=== PATIENT | female | born 1985 | race American Indian/Alaskan Native ===

== ENCOUNTER 2016-07-20 18:45 | Emergency (ER) | payer MEDICAID ==
[2016-07-21] MEDS ORDERED: XYLOCAINE 1% 20 mL INFILTRATI ONE (00:18)
[2016-07-21 01:52] VITALS: BP 160/115
[2016-07-21] MEDS ORDERED: POLYSPORIN TP ONE (01:53)
--- NOTE | 2016-07-21 04:02 | Emergency Department Report ---
Abscess Boil HPI - HPI Chief Complaint: Skin/Abscess/Foreign Body Stated Complaint: LT BREAST SWOLLEN /PAIN /REDNESS Duration: >1 Week Location: Other (left breast) Severity: Mild History: Yes Pain, Yes Insect Bite, No Fever, No Purulent Drainage, No Numbness , No Foreign Body, No Previous History HPI: 31 year old female presents to ED with 2cm abscess on left breast. patient is stable, neurologically intact and in no acute distress. Home Medications: Home Medications Medication Instructions Recorded Confirmed Last Taken Ondansetron [Zofran] 4 mg PO Q6HR PRN 07/15/13 07/15/13 07/13/13 4 Previous Rx's Medication Instructions Recorded Last Taken Type Ferrous Sulfate [Feosol 325 MG tab] 325 mg PO TID #90 tablet 07/15/13 Unknown Rx Ibuprofen [Motrin 800 MG tab] 800 mg PO Q8H PRN #90 tablet 07/15/13 Unknown Rx oxyCODONE /ACETAMINOPHEN [Percocet 1 tab PO Q6HR PRN #30 tablet 07/15/13 Unknown Rx 5/325 mg] Ketorolac [Toradol] 10 mg PO Q6H PRN #20 tablet 07/21/16 Unknown Rx Sulfamethoxazole/Trimethoprim 1 each PO BID #20 tablet 07/21/16 Unknown Rx [Bactrim DS TAB] Allergies/Adverse Reactions: Allergies Allergy/AdvReac Type Severity Reaction Status Date / Time No Known Allergies Allergy Verified 07/12/13 10:32 ED Review of Systems ROS: Stated complaint: LT BREAST SWOLLEN /PAIN /REDNESS Other details as noted in HPI Constitutional: denies: chills, fever Eyes: denies: eye pain, eye discharge, vision change ENT: denies: ear pain, throat pain Respiratory: denies: cough, shortness of breath, wheezing Cardiovascular: denies: chest pain, palpitations Endocrine: no symptoms reported Gastrointestinal: denies: abdominal pain, nausea, diarrhea Genitourinary: denies: urgency, dysuria, discharge Musculoskeletal: denies: back pain, joint swelling, arthralgia Skin: other (left breast abscess). denies: rash, lesions Neurological: denies: headache, weakness, paresthesias Psychiatric: denies: anxiety, depression Hematological/Lymphatic: denies: easy bleeding, easy bruising ED Past Medical Hx - Past Medical History Previous Medical History?: Yes Hx Hypertension: Yes Hx Congestive Heart Failure: No Hx Diabetes: No Hx Deep Vein Thrombosis: No Hx Renal Disease: No Hx Sickle Cell Disease: No Hx Seizures: No Hx Asthma: No Hx COPD: No Hx HIV: No - Surgical History Past Surgical History?: Yes Additional Surgical History: d&C c-sec - Social History Smoking Status: Current Every Day Smoker Substance Use Type: None - Medications Home Medications: Home Medications Medication Instructions Recorded Confirmed Last Taken Type Ferrous Sulfate [Feosol 325 MG tab] 325 mg PO TID #90 tablet 07/15/13 Unknown Rx Ibuprofen [Motrin 800 MG tab] 800 mg PO Q8H PRN #90 tablet 07/15/13 Unknown Rx Ondansetron [Zofran] 4 mg PO Q6HR PRN 07/15/13 07/15/13 07/13/13 History 4 oxyCODONE /ACETAMINOPHEN [Percocet 1 tab PO Q6HR PRN #30 tablet 07/15/13 Unknown Rx 5/325 mg] Ketorolac [Toradol] 10 mg PO Q6H PRN #20 tablet 07/21/16 Unknown Rx Sulfamethoxazole/Trimethoprim 1 each PO BID #20 tablet 07/21/16 Unknown Rx [Bactrim DS TAB] ED Abscess Boil Physical Exam - Exam General: Vital signs noted. No distress. Alert and acting appropriately. Cardiovascular: normal rate and rhythm Respiratory Normal breath sounds bilaterally Size: 2 cm Exam: Yes Tenderness, Yes Fluctuance, Yes Surrounding Cellulites/Erythema, Yes Normal Neurologic Exam, Yes Normal Circulation, No Lymphangitis, No Crepitation , No Heart Murmur I & D Note - I & D Note I & D Note: area prepped with betadine. area numbed with 5mL 1% lidocaine scalpel used to puncture abscess and minimal amount of purulent drainage obtained from site of abscess. patient tolerated procedure well. gauze and bacitracin applied to area by RN. female RN present during entire examination. ED Course Vital Signs 07/20/16 07/21/16 20:16 01:52 Temperature 99.3 F 98.1 F Pulse Rate 82 75 Respiratory 18 16 Rate Blood Pressure 152/104 Blood Pressure 160/115 [Right] O2 Sat by Pulse 100 100 Oximetry Critical care attestation.: If time is entered above; I have spent that time in minutes in the direct care of this critically ill patient, excluding procedure time. ED Medical Decision Making - Lab Data Lab Results 07/21/16 Range/Units 01:11 Urine HCG, Qual Negative (Negative) - Medical Decision Making 31 year old female presents to ED with left breast abscess. I&D performed and patient tolerated well. patient will be placed on PO antibiotics and is to return to ED in 2-3 days for re check. patient is stable, neurologically intact and in no acute distress. ED Disposition Clinical Impression: Abscess Disposition: DISCHARGED TO HOME OR SELFCARE Is pt being admited?: No Does the pt Need Aspirin: No Condition: Stable Instructions: Breast Abscess Drainage (ED), Incision and Drainage (ED) Additional Instructions: please return to ED or PCP for wound recheck within 2 days. Prescriptions: Ketorolac [Toradol] 10 mg PO Q6H PRN #20 tablet PRN Reason: Pain Sulfamethoxazole/Trimethoprim [Bactrim DS TAB] 1 each PO BID #20 tablet Referrals: PRIMARY CARE, [Primary Care Provider] - 2-3 Days Forms: Work/School Release Form(ED)
== END 2016-07-21 02:39 | disposition home or self-care (01) ==
LOC: ED 18:45
DX: N61.1 Abscess of the breast and nipple (principal); I10 Essential (primary) hypertension; F17.200 Nicotine dependence, unspecified, uncomplicated
CPT/HCPCS: 81025

== ENCOUNTER 2017-02-26 15:24 | Emergency (ER) | payer MEDICAID ==
[2017-02-26 15:48] VITALS: BP 149/92
[2017-02-26] MEDS ORDERED: ROCEPHIN IM ONE (16:42)
[2017-02-26] MEDS ORDERED: XYLOCAINE 1% MPF 5 mL INFILTRATI ONE (16:42)
--- NOTE | 2017-02-26 16:42 | Emergency Department Report ---
Abscess Boil HPI - HPI Chief Complaint: Skin/Abscess/Foreign Body Stated Complaint: CYST ON BREAST Time Seen by Provider: 02/26/17 16:34 Duration: >1 Week Location: Other (L BREAST) Severity: Mild History: Yes Pain, Yes Purulent Drainage, Yes Previous History (SURG PLANNED), No Fever, No Numbness, No Foreign Body, No Insect Bite Home Medications: Home Medications Medication Instructions Recorded Confirmed Last Taken Ondansetron [Zofran] 4 mg PO Q6HR PRN 07/15/13 07/15/13 07/13/13 4 Previous Rx's Medication Instructions Recorded Last Taken Type Ferrous Sulfate [Feosol 325 MG tab] 325 mg PO TID #90 tablet 07/15/13 Unknown Rx Ibuprofen [Motrin 800 MG tab] 800 mg PO Q8H PRN #90 tablet 07/15/13 Unknown Rx oxyCODONE /ACETAMINOPHEN [Percocet 1 tab PO Q6HR PRN #30 tablet 07/15/13 Unknown Rx 5/325 mg] Ketorolac [Toradol] 10 mg PO Q6H PRN #20 tablet 07/21/16 Unknown Rx Sulfamethoxazole/Trimethoprim 1 each PO BID #20 tablet 07/21/16 Unknown Rx [Bactrim DS TAB] Allergies/Adverse Reactions: Allergies Allergy/AdvReac Type Severity Reaction Status Date / Time No Known Allergies Allergy Verified 07/12/13 10:32 ED Review of Systems ROS: Stated complaint: CYST ON BREAST Other details as noted in HPI Comment: All other systems reviewed and negative Skin: other (ABSCESS L BREAST) ED Past Medical Hx - Past Medical History Hx Hypertension: Yes Hx Congestive Heart Failure: No Hx Diabetes: No Hx Deep Vein Thrombosis: No Hx Renal Disease: No Hx Sickle Cell Disease: No Hx Seizures: No Hx Asthma: No Hx COPD: No Hx HIV: No - Surgical History Additional Surgical History: d&C c-sec - Social History Smoking Status: Current Every Day Smoker Substance Use Type: None - Medications Home Medications: Home Medications Medication Instructions Recorded Confirmed Last Taken Type Ferrous Sulfate [Feosol 325 MG tab] 325 mg PO TID #90 tablet 07/15/13 Unknown Rx Ibuprofen [Motrin 800 MG tab] 800 mg PO Q8H PRN #90 tablet 07/15/13 Unknown Rx Ondansetron [Zofran] 4 mg PO Q6HR PRN 07/15/13 07/15/13 07/13/13 History 4 oxyCODONE /ACETAMINOPHEN [Percocet 1 tab PO Q6HR PRN #30 tablet 07/15/13 Unknown Rx 5/325 mg] Ketorolac [Toradol] 10 mg PO Q6H PRN #20 tablet 07/21/16 Unknown Rx Sulfamethoxazole/Trimethoprim 1 each PO BID #20 tablet 07/21/16 Unknown Rx [Bactrim DS TAB] ED Abscess Boil Physical Exam - Exam General: Vital signs noted. No distress. Alert and acting appropriately. Size: 2 cm Exam: Yes Tenderness, Yes Surrounding Cellulites/Erythema, Yes Normal Neurologic Exam, Yes Normal Circulation, No Fluctuance, No Lymphangitis, No Crepitation, No Heart Murmur Exam: VSS NAD. NO FEVER. HER 90 ON EXAM. PT JUST WANTED REASSURANCE. ON BACTRIM AND TORADOL I & D Note - I & D Note I & D Note: ALREADY DRAINING ON OWN ED Course Vital Signs 02/26/17 15:44 Temperature 98 F Pulse Rate 101 H Respiratory 20 Rate Blood Pressure 149/92 O2 Sat by Pulse 97 Oximetry Critical care attestation.: If time is entered above; I have spent that time in minutes in the direct care of this critically ill patient, excluding procedure time. ED Medical Decision Making - Medical Decision Making SEE NOTE - Differential Diagnosis RECHECK OF WOUND ED Disposition Clinical Impression: Abscess, Cellulitis Disposition: DC-01 TO HOME OR SELFCARE Is pt being admited?: No Does the pt Need Aspirin: No Condition: Stable Instructions: Abscess (ED), Cellulitis (ED) Additional Instructions: EPSOM SALT SOAKS THREE TIMES PER DAY FOR 20 MIN EACH TIME CONTINUE BACTRIM SEE PCP THIS WEEK Referrals: MEKA NOLEN MD [Staff Physician] - 3-5 Days Time of Disposition: 16:42
== END 2017-02-26 17:37 | disposition home or self-care (01) ==
LOC: ED 15:24
DX: N61.1 Abscess of the breast and nipple (principal); N60.02 Solitary cyst of left breast; I10 Essential (primary) hypertension; F17.200 Nicotine dependence, unspecified, uncomplicated; Z48.00 Encounter for change or removal of nonsurgical wound dressing
CPT/HCPCS: 96372; 99282; J0696

== ENCOUNTER 2017-05-19 09:04 | Emergency (ER) | payer MEDICAID ==
[2017-05-19 09:48] VITALS: BP 163/107
== END 2017-05-19 16:42 ==
LOC: ED 09:04
DX: M54.2 Cervicalgia (principal); Z53.21 Procedure and treatment not carried out due to patient leaving prior to being seen by health care provider

== ENCOUNTER 2018-03-18 08:05 | Emergency (ER) | payer MEDICAID, OTHER ==
[2018-03-18 08:53] LABS: Basophils % (Auto) 0.5 % (0.0-1.8); Eosinophils # (Auto) 0.1 K/mm3 (0.0-0.4); Eosinophils % (Auto) 0.9 % (0.0-4.3); Hemoglobin 14.2 gm/dl (10.1-14.3); Lymphocytes # (Auto) 2.1 K/mm3 (1.2-5.4); Lymphocytes % (Auto) 26.6 % (13.4-35.0); Mean Corpuscular HGB Conc 34 % (30-34); Mean Corpuscular Volume 84 fl (79-97); Monocytes # (Auto) 0.5 K/mm3 (0.0-0.8); Monocytes % (Auto) 5.8 % (0.0-7.3); Platelet Count 281 K/mm3 (140-440); Red Blood Count 5.01 M/mm3 (3.65-5.03); Red Cell Distribution Width 15.8 % (13.2-15.2)
--- NOTE | 2018-03-18 09:32 | Emergency Department Report ---
ED Female HPI - General Chief complaint: Vaginal Bleeding Stated complaint: COMPLICATION W/ CONTROL Time Seen by Provider: 03/18/18 09:25 Source: patient Mode of arrival: Ambulatory Limitations: No Limitations - History of Present Illness Initial comments: Ms. Ferrer is a very pleasant healthy 31-year-old female with irregular vaginal bleeding. She is concerned that her IUD has been misplaced. She had a similar occurrence last fall . IUD was misplaced completely out of her cervix/vagina/uterus. With IUD in place she normally does not have any vaginal bleeding. Since she had vaginal bleeding earlier this week, she is concerned that IUD is no longer present. She is [facility] at [facility]. She denies any abdominal pain. She denies any vaginal discharge. She denies lightheadedness or any generalized symptoms. Past medical history includes asthma hypertension. Past surgical history includes D&C and section. MD Complaint: vaginal bleeding -: Gradual, days(s) (several days ago) Severity: mild Consistency: intermittent, now resolved Improves with: none Worsens with: none Are you Now?: No Associated Symptoms: denies other symptoms - Related Data Home Medications Medication Instructions Recorded Confirmed Last Taken Ondansetron [Zofran] 4 mg PO Q6HR PRN 07/15/13 07/15/13 07/13/13 4 Previous Rx's Medication Instructions Recorded Last Taken Type Ferrous Sulfate [Feosol 325 MG tab] 325 mg PO TID #90 tablet 07/15/13 Unknown Rx Ibuprofen [Motrin 800 MG tab] 800 mg PO Q8H PRN #90 tablet 07/15/13 Unknown Rx oxyCODONE /ACETAMINOPHEN [Percocet 1 tab PO Q6HR PRN #30 tablet 07/15/13 Unknown Rx 5/325 mg] Ketorolac [Toradol] 10 mg PO Q6H PRN #20 tablet 07/21/16 Unknown Rx Sulfamethoxazole/Trimethoprim 1 each PO BID #20 tablet 07/21/16 Unknown Rx [Bactrim DS TAB] Allergies Allergy/AdvReac Type Severity Reaction Status Date / Time No Known Allergies Allergy Verified 03/18/18 08:09 ED Review of Systems ROS: Stated complaint: COMPLICATION W/ CONTROL Other details as noted in HPI Comment: All other systems reviewed and negative Constitutional: denies: fever, malaise Respiratory: denies: cough Cardiovascular: denies: chest pain ED Past Medical Hx - Past Medical History Hx Hypertension: Yes Hx Congestive Heart Failure: No Hx Diabetes: No Hx Deep Vein Thrombosis: No Hx Renal Disease: No Hx Sickle Cell Disease: No Hx Seizures: No Hx Asthma: Yes Hx COPD: No Hx HIV: No - Surgical History Additional Surgical History: d&C c-sec - Social History Smoking Status: Never Smoker Substance Use Type: None - Medications Home Medications: Home Medications Medication Instructions Recorded Confirmed Last Taken Type Ferrous Sulfate [Feosol 325 MG tab] 325 mg PO TID #90 tablet 07/15/13 Unknown Rx Ibuprofen [Motrin 800 MG tab] 800 mg PO Q8H PRN #90 tablet 07/15/13 Unknown Rx Ondansetron [Zofran] 4 mg PO Q6HR PRN 07/15/13 07/15/13 07/13/13 History 4 oxyCODONE /ACETAMINOPHEN [Percocet 1 tab PO Q6HR PRN #30 tablet 07/15/13 Unknown Rx 5/325 mg] Ketorolac [Toradol] 10 mg PO Q6H PRN #20 tablet 07/21/16 Unknown Rx Sulfamethoxazole/Trimethoprim 1 each PO BID #20 tablet 07/21/16 Unknown Rx [Bactrim DS TAB] ED Physical Exam - General Limitations: No Limitations General appearance: alert, in no apparent distress - Head Head exam: Present: atraumatic, normocephalic - Eye Eye exam: Present: normal appearance - ENT ENT exam: Present: mucous membranes moist - Neck Neck exam: Present: normal inspection. Absent: tenderness, meningismus - Respiratory Respiratory exam: Present: normal lung sounds bilaterally. Absent: respiratory distress, wheezes, rales, rhonchi - Cardiovascular Cardiovascular Exam: Present: regular rate, normal rhythm, normal heart sounds. Absent: systolic murmur, diastolic murmur, rubs, gallop - GI/Abdominal GI/Abdominal exam: Present: soft, normal bowel sounds. Absent: distended, tenderness, guarding, rebound - Extremities Exam Extremities exam: Present: normal inspection - Back Exam Back exam: Present: normal inspection - Neurological Exam Neurological exam: Present: alert, oriented X3, normal gait - Psychiatric Psychiatric exam: Present: normal affect, normal mood - Skin Skin exam: Present: warm, dry, intact, normal color. Absent: rash ED Course Vital Signs 03/18/18 08:09 Temperature 99.1 F Pulse Rate 95 H Respiratory 20 Rate Blood Pressure 159/108 O2 Sat by Pulse 99 Oximetry ED Medical Decision Making - Lab Data Result diagrams: 03/18/18 08:43 Laboratory Results - last 24 hr 03/18/18 03/18/18 03/18/18 08:43 08:43 08:43 WBC 8.0 RBC 5.01 Hgb 14.2 Hct 42.0 MCV 84 MCH 28 MCHC 34 RDW 15.8 H Plt Count 281 Lymph % (Auto) 26.6 [place] % (Auto) 5.8 Eos % (Auto) 0.9 Baso % (Auto) 0.5 Lymph # 2.1 [place] # 0.5 Eos # 0.1 Baso # 0.0 Seg Neutrophils % 66.2 Seg Neutrophils # 5.3 HCG, Qual Negative Blood Type O POSITIVE Antibody Screen Negative - Radiology Data Radiology results: report reviewed Well-positioned IUD - Medical Decision Making Ms. Ferrer presents with irregular vaginal bleeding with well-positioned IUD according to ultrasound. No evidence of . Given reassurance. CBC within normal limits. test negative. Critical care attestation.: If time is entered above; I have spent that time in minutes in the direct care of this critically ill patient, excluding procedure time. ED Disposition Clinical Impression: IUD (intrauterine device) in place, Vagina bleeding Disposition: -01 TO HOME OR SELFCARE Is pt being admited?: No Does the pt Need Aspirin: No Condition: Stable Instructions: Menstruation (ED) Referrals: PRIMARY CARE, [Primary Care Provider] - 3-5 Days
--- NOTE | 2018-03-18 11:59 | Ultrasound Report ---
Limited abdominal ultrasound: Vaginal hemorrhage; IUD identification. Transabdominal imaging is performed. The uterus is visualized measuring approximately 3.9 x 3.9 x 5.3 cm. No evidence of uterine mass. There are linear high density at in the endometrium consistent with a relatively well-positioned IUD. The left ovary is present containing a 16mm cyst with some dependent debris. The right ovary is less well imaged. No evidence of free fluid. Impression: Well-positioned IUD.
[2018-03-18 12:33] VITALS: BP 157/111
== END 2018-03-18 12:44 | disposition home or self-care (01) ==
LOC: ED 08:05
DX: N93.9 Abnormal uterine and vaginal bleeding, unspecified (principal); Z30.433 Encounter for removal and reinsertion of intrauterine contraceptive device; I10 Essential (primary) hypertension; J45.909 Unspecified asthma, uncomplicated
CPT/HCPCS: 36415; 76857; 84703; 85025; 86850; 86900; 86901

== ENCOUNTER 2018-08-31 09:49 | Emergency (ER) | payer MEDICAID ==
[2018-08-31 09:56] VITALS: BP 150/103
--- NOTE | 2018-08-31 11:24 | Emergency Department Report ---
ED Headache HPI - General Chief Complaint: Headache Stated Complaint: NECK PAIN/HEADACHE Time Seen by Provider: 08/31/18 11:06 - History of Present Illness Initial Comments: 33-year-old female history of hypertension presents to ED with complaint of headache since yesterday. She states pain is diffusely located, with associated neck tightness. Patient believes her blood pressure is elevated, states whenever she experiences this neck pain that is usually because her blood pressure is high. Patient denies nausea, vomiting, visual changes. Reports some lightheadedness. Patient states she has been off her BP meds for several months. PCP: Dr Sutton Timing/Duration: other (since yesterday) Quality: moderate Associated Symptoms: denies: fever/chills, nausea/vomiting, stiff neck, vision changes, weakness Allergies/Adverse Reactions: Allergies No Known Allergies Allergy (Verified 03/18/18 08:09) Home Medications: Ambulatory Orders Ferrous Sulfate [Feosol 325 MG tab] 325 mg PO TID #90 tablet 07/15/13 Ibuprofen [Motrin 800 MG tab] 800 mg PO Q8H PRN #90 tablet 07/15/13 Ondansetron [Zofran] 4 mg PO Q6HR PRN 07/15/13 oxyCODONE /ACETAMINOPHEN [Percocet 5/325 mg] 1 tab PO Q6HR PRN #30 tablet 07/15/13 Ketorolac [Toradol] 10 mg PO Q6H PRN #20 tablet 07/21/16 Sulfamethoxazole/Trimethoprim [Bactrim DS TAB] 1 each PO BID #20 tablet 07/21/16 Losartan [Cozaar] 25 mg PO QDAY #30 tablet 08/31/18 ED Review of Systems ROS: Stated complaint: NECK PAIN/HEADACHE Other details as noted in HPI Comment: All other systems reviewed and negative Constitutional: denies: chills, fever Eyes: denies: vision change Gastrointestinal: denies: nausea, vomiting Neurological: headache. denies: weakness, numbness, paresthesias ED Past Medical Hx - Past Medical History Previous Medical History?: Yes Hx Hypertension: Yes Hx Congestive Heart Failure: No Hx Diabetes: No Hx Deep Vein Thrombosis: No Hx Renal Disease: No Hx Sickle Cell Disease: No Hx Seizures: No Hx Asthma: Yes Hx COPD: No Hx HIV: No - Surgical History Past Surgical History?: Yes Additional Surgical History: d&C c-sec - Social History Smoking Status: Current Every Day Smoker - Medications Home Medications: Home Medications Medication Instructions Recorded Confirmed Last Taken Type Ferrous Sulfate [Feosol 325 MG tab] 325 mg PO TID #90 tablet 07/15/13 Unknown Rx Ibuprofen [Motrin 800 MG tab] 800 mg PO Q8H PRN #90 tablet 07/15/13 Unknown Rx Ondansetron [Zofran] 4 mg PO Q6HR PRN 07/15/13 07/15/13 07/13/13 History 4 oxyCODONE /ACETAMINOPHEN [Percocet 1 tab PO Q6HR PRN #30 tablet 07/15/13 Unknown Rx 5/325 mg] Ketorolac [Toradol] 10 mg PO Q6H PRN #20 tablet 07/21/16 Unknown Rx Sulfamethoxazole/Trimethoprim 1 each PO BID #20 tablet 07/21/16 Unknown Rx [Bactrim DS TAB] Losartan [Cozaar] 25 mg PO QDAY #30 tablet 08/31/18 Unknown Rx ED Physical Exam - General Limitations: No Limitations General appearance: alert, in no apparent distress, other (appears nontoxic) - Head Head exam: Present: atraumatic, normocephalic - Eye Eye exam: Present: normal appearance, PERRL, EOMI - ENT ENT exam: Present: mucous membranes moist - Neck Neck exam: Present: normal inspection, full ROM. Absent: meningismus - Respiratory Respiratory exam: Present: normal lung sounds bilaterally. Absent: respiratory distress - Cardiovascular Cardiovascular Exam: Present: regular rate, normal rhythm - GI/Abdominal GI/Abdominal exam: Absent: distended - Extremities Exam Extremities exam: Present: normal inspection - Neurological Exam Neurological exam: Present: alert, oriented X3, CN II-XII intact. Absent: motor sensory deficit - Psychiatric Psychiatric exam: Present: normal affect, normal mood - Skin Skin exam: Present: warm, dry, intact, normal color ED Course Vital Signs 08/31/18 09:53 Temperature 98.5 F Pulse Rate 93 H Respiratory 16 Rate Blood Pressure 150/103 O2 Sat by Pulse 99 Oximetry ED Medical Decision Making - Medical Decision Making - presents for BP med refill - [place], neck pain reportedly experienced by pt in the past when BP elevated - appears nontoxic, neuro exam normal, no meningismus present - refill given - PCP f/u advised - return precautions given - Differential Diagnosis hypertension Critical care attestation.: If time is entered above; I have spent that time in minutes in the direct care of this critically ill patient, excluding procedure time. ED Disposition Clinical Impression: Hypertension Disposition: DC-01 TO HOME OR SELFCARE Is pt being admited?: No Condition: Stable Instructions: Hypertension (ED) Prescriptions: Losartan [Cozaar] 25 mg PO QDAY #30 tablet Referrals: ANDREI SUTTON MD [Staff Physician] - 3-5 Days Time of Disposition: 11:24
== END 2018-08-31 11:40 | disposition home or self-care (01) ==
LOC: ED 09:49
DX: I10 Essential (primary) hypertension (principal); J45.909 Unspecified asthma, uncomplicated; F17.200 Nicotine dependence, unspecified, uncomplicated; Z79.899 Other long term (current) drug therapy
CPT/HCPCS: 99282

== ENCOUNTER 2018-09-13 11:13 | Emergency (ER) | payer MEDICAID ==
--- NOTE | 2018-09-13 11:21 | Emergency Department Report ---
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
--- NOTE | 2018-09-13 11:59 | Emergency Department Report ---
ED General Adult HPI - General Chief complaint: Neck Pain/Injury Stated complaint: SHOULDER/NECK PAIN Time Seen by Provider: 09/13/18 11:17 Source: patient Mode of arrival: Ambulatory Limitations: No Limitations - Related Data Home Medications Medication Instructions Recorded Confirmed Last Taken Ondansetron [Zofran] 4 mg PO Q6HR PRN 07/15/13 07/15/13 07/13/13 4 Previous Rx's Medication Instructions Recorded Last Taken Type Ferrous Sulfate [Feosol 325 MG tab] 325 mg PO TID #90 tablet 07/15/13 Unknown Rx Ibuprofen [Motrin 800 MG tab] 800 mg PO Q8H PRN #90 tablet 07/15/13 Unknown Rx oxyCODONE /ACETAMINOPHEN [Percocet 1 tab PO Q6HR PRN #30 tablet 07/15/13 Unknown Rx 5/325 mg] Ketorolac [Toradol] 10 mg PO Q6H PRN #20 tablet 07/21/16 Unknown Rx Sulfamethoxazole/Trimethoprim 1 each PO BID #20 tablet 07/21/16 Unknown Rx [Bactrim DS TAB] Losartan [Cozaar] 25 mg PO QDAY #30 tablet 08/31/18 Unknown Rx Ibuprofen [Motrin 800 MG tab] 800 mg PO Q8HR PRN #30 tablet 09/13/18 Unknown Rx Menthol/Camphor [[place] 1 applic TP BID PRN #1 cream..g. 09/13/18 Unknown Rx Neck-Shoulder Cream] Allergies Allergy/AdvReac Type Severity Reaction Status Date / Time No Known Allergies Allergy Verified 03/18/18 08:09 ED Review of Systems ROS: Stated complaint: SHOULDER/NECK PAIN Other details as noted in HPI ED Past Medical Hx - Past Medical History Previous Medical History?: Yes Hx Hypertension: Yes Hx Congestive Heart Failure: No Hx Diabetes: No Hx Deep Vein Thrombosis: No Hx Renal Disease: No Hx Sickle Cell Disease: No Hx Seizures: No Hx Asthma: Yes Hx COPD: No Hx HIV: No - Surgical History Past Surgical History?: Yes Additional Surgical History: d&C c-sec - Social History Smoking Status: Never Smoker Substance Use Type: Alcohol - Medications Home Medications: Home Medications Medication Instructions Recorded Confirmed Last Taken Type Ferrous Sulfate [Feosol 325 MG tab] 325 mg PO TID #90 tablet 07/15/13 Unknown Rx Ibuprofen [Motrin 800 MG tab] 800 mg PO Q8H PRN #90 tablet 07/15/13 Unknown Rx Ondansetron [Zofran] 4 mg PO Q6HR PRN 07/15/13 07/15/13 07/13/13 History 4 oxyCODONE /ACETAMINOPHEN [Percocet 1 tab PO Q6HR PRN #30 tablet 07/15/13 Unknown Rx 5/325 mg] Ketorolac [Toradol] 10 mg PO Q6H PRN #20 tablet 07/21/16 Unknown Rx Sulfamethoxazole/Trimethoprim 1 each PO BID #20 tablet 07/21/16 Unknown Rx [Bactrim DS TAB] Losartan [Cozaar] 25 mg PO QDAY #30 tablet 08/31/18 Unknown Rx Ibuprofen [Motrin 800 MG tab] 800 mg PO Q8HR PRN #30 tablet 09/13/18 Unknown Rx Menthol/Camphor [[place] 1 applic TP BID PRN #1 cream..g. 09/13/18 Unknown Rx Neck-Shoulder Cream] ED Physical Exam - General Limitations: No Limitations ED Course Vital Signs 09/13/18 11:15 Temperature 98.2 F Pulse Rate 106 H Respiratory 17 Rate Blood Pressure 161/111 O2 Sat by Pulse 100 Oximetry Critical care attestation.: If time is entered above; I have spent that time in minutes in the direct care of this critically ill patient, excluding procedure time. ED Disposition Clinical Impression: Acute strain of neck muscle Disposition: DC-01 TO HOME OR SELFCARE Is pt being admited?: No Does the pt Need Aspirin: No Condition: Stable Instructions: Muscle Strain (ED) Additional Instructions: Ibuprofen as needed for pain management increase her water intake and take with food. [place] muscle strain medication. Apply twice a day as needed. Follow-up with Dr. Saldivar for your elevated blood pressure. Prescriptions: Ibuprofen [Motrin 800 MG tab] 800 mg PO Q8HR PRN #30 tablet PRN Reason: Pain , Severe (7-10) Menthol/Camphor [[place] Neck-Shoulder Cream] 1 applic TP BID PRN #1 cream..g. PRN Reason: Pain , Severe (7-10) Referrals: AJ STEELE MD [Primary Care Provider] - 3-5 Days
[2018-09-13 12:07] LABS: Bilirubin,Urine NEG (Negative); Blood,Urine NEG (Negative); Color,Urine Yellow (Yellow); Mucus,Urine FEW /HPF; Protein,Urine <15 mg/dL mg/dL (Negative); Urobilinogen,Urine < 2.0 mg/dL (<2.0)
[2018-09-13 12:09] LABS: HCG Qualitative,Urine Negative (Negative)
[2018-09-13 12:43] VITALS: BP 160/96
== END 2018-09-13 12:42 | disposition home or self-care (01) ==
LOC: ED 11:13
DX: S16.1XXA Strain of muscle, fascia and tendon at neck level, initial encounter (principal); M25.512 Pain in left shoulder; M25.511 Pain in right shoulder; Z79.899 Other long term (current) drug therapy; I10 Essential (primary) hypertension; J45.909 Unspecified asthma, uncomplicated; N89.8 Other specified noninflammatory disorders of vagina; X58.XXXA Exposure to other specified factors, initial encounter; Y93.F2 Activity, caregiving, lifting; Y92.59 Other trade areas as the place of occurrence of the external cause; Y99.8 Other external cause status
CPT/HCPCS: 81001; 81025

== ENCOUNTER 2021-04-17 20:26 | Emergency (ER) | payer MEDICAID ==
[2021-04-18 02:01] LABS: Basophils # (Auto) 0.1 K/mm3 (0.0-0.1); Basophils % (Auto) 0.6 % (0.0-1.8); Eosinophils # (Auto) 0.1 K/mm3 (0.0-0.4); Hematocrit 40.1 % (30.3-42.9); Hemoglobin 13.2 gm/dl (10.1-14.3); Lymphocytes # (Auto) 2.1 K/mm3 (1.2-5.4); Lymphocytes % (Auto) 21.5 % (13.4-35.0); Mean Corpuscular HGB Conc 33 % (30-34); Mean Corpuscular Volume 83 fl (79-97); Monocytes # (Auto) 0.7 K/mm3 (0.0-0.8); Monocytes % (Auto) 7.5 % (0.0-7.3); Platelet Count 282 K/mm3 (140-440); Red Blood Count 4.82 M/mm3 (3.65-5.03)
[2021-04-18 02:19] LABS: Alanine Aminotransferase 14 units/L (7-56); BUN/Creatinine Ratio 20; Blood Urea Nitrogen 14 mg/dL (7-17); Calcium 8.5 mg/dL (8.4-10.2); Hemolysis Index 4
[2021-04-18 05:51] LABS: HCG Qualitative,Urine Negative (Negative)
[2021-04-18 05:52] LABS: Bilirubin,Urine NEG (Negative); Blood,Urine NEG (Negative); Color,Urine Yellow (Yellow); Mucus,Urine FEW /HPF; Protein,Urine <15 mg/dL mg/dL (Negative); Urobilinogen,Urine < 2.0 mg/dL (<2.0)
--- NOTE | 2021-04-18 06:52 | XRay Report ---
XR abdomen 1V ap INDICATION / CLINICAL INFORMATION: abd pain. COMPARISON: None available. Supine AP abdomen FINDINGS: TUBES / LINES: None. BOWEL GAS PATTERN: No significant abnormality. FREE AIR / EXTRALUMINAL GAS: None seen. ADDITIONAL FINDINGS: IUD present within the pelvis. IMPRESSION: 1. No significant abnormality. Signer Name: Tez Jo II, MD Signed: 04/18/2021 6:48 AM Workstation Name: [id number]
[2021-04-18] MEDS ORDERED: SULFAMETHOXAZOLE/TRIMETHOPRIM 800/160MG DS TAB PO ONE (06:57)
[2021-04-18] MEDS ORDERED: CLINDAMYCIN 300 MG CAP PO ONE (06:57)
[2021-04-18] MEDS ORDERED: ONDANSETRON 4 MG ODT TAB PO ONE (06:58)
[2021-04-18] MEDS ORDERED: HYDROcodone/ACETAMINOPHEN 5-325 MG TAB PO ONE (06:58)
--- NOTE | 2021-04-18 07:19 | Emergency Department Report ---
ED Abdominal Pain HPI - General Chief Complaint: Abdominal Pain Stated Complaint: AB/BUTT PAIN Time Seen by Provider: 04/18/21 06:36 Source: patient Mode of arrival: Ambulatory Limitations: No Limitations - History of Present Illness Initial Comments: 35-year-old female with a past medical history of obesity, hypertension, asthma, and previous presents the hospital planing of abdominal pain for last 3 days. Pain is generalized, intermittent, cramping. Yesterday pain was rated 10/10 intensity. Pain is currently 8/10 intensity. Patient denies nausea, vomiting, fever, dysuria, diarrhea, or constipation. Patient also complains of a abscess to her abdominal wall which is tender to palpation. Abscess began draining spontaneously. Patient did not take her BP medication yesterday or this morning. She states she currently takes hydrochlorothiazide but cannot recall the dose. Denies headache or chest pain - Related Data Home Medications Medication Instructions Recorded Confirmed Last Taken Ondansetron [Zofran] 4 mg PO Q6HR PRN 07/15/13 07/15/13 07/13/13 4 Previous Rx's Medication Instructions Recorded Last Taken Type Ferrous Sulfate [Feosol 325 MG tab] 325 mg PO TID #90 tablet 07/15/13 Unknown Rx Ibuprofen [Motrin 800 MG tab] 800 mg PO Q8H PRN #90 tablet 07/15/13 Unknown Rx oxyCODONE /ACETAMINOPHEN [Percocet 1 tab PO Q6HR PRN #30 tablet 07/15/13 Unknown Rx 5/325 mg] Ketorolac [Toradol] 10 mg PO Q6H PRN #20 tablet 07/21/16 Unknown Rx Sulfamethoxazole/Trimethoprim 1 each PO BID #20 tablet 07/21/16 Unknown Rx [Bactrim DS TAB] Losartan [Cozaar] 25 mg PO QDAY #30 tablet 08/31/18 Unknown Rx Ibuprofen [Motrin 800 MG tab] 800 mg PO Q8HR PRN #30 tablet 09/13/18 Unknown Rx Menthol/Camphor [[place] 1 applic TP BID PRN #1 cream..g. 09/13/18 Unknown Rx Neck-Shoulder Cream] HYDROcodone/APAP 5-325 [[place] 1 each PO Q6HR PRN #14 tablet 04/18/21 Unknown Rx 5/325] Ibuprofen [Motrin] 800 mg PO Q8HR PRN #20 tablet 04/18/21 Unknown Rx Sulfamethoxazole/Trimethoprim 1 each PO BID #20 tab 04/18/21 Unknown Rx [Bactrim DS TAB] Allergies Allergy/AdvReac Type Severity Reaction Status Date / Time No Known Allergies Allergy Verified 03/18/18 08:09 ED Review of Systems ROS: Stated complaint: AB/BUTT PAIN Other details as noted in HPI Comment: All other systems reviewed and negative ED Past Medical Hx - Past Medical History Previous Medical History?: Yes Hx Hypertension: Yes Hx Congestive Heart Failure: No Hx Diabetes: No Hx Deep Vein Thrombosis: No Hx Renal Disease: No Hx Sickle Cell Disease: No Hx Seizures: No Hx Asthma: Yes Hx COPD: No Hx HIV: No - Surgical History Past Surgical History?: Yes Additional Surgical History: d&C c-sec - Social History Smoking Status: Current Every Day Smoker Substance Use Type: None - Medications Home Medications: Home Medications Medication Instructions Recorded Confirmed Last Taken Type Ferrous Sulfate [Feosol 325 MG tab] 325 mg PO TID #90 tablet 07/15/13 Unknown Rx Ibuprofen [Motrin 800 MG tab] 800 mg PO Q8H PRN #90 tablet 07/15/13 Unknown Rx Ondansetron [Zofran] 4 mg PO Q6HR PRN 07/15/13 07/15/13 07/13/13 History 4 oxyCODONE /ACETAMINOPHEN [Percocet 1 tab PO Q6HR PRN #30 tablet 07/15/13 Unknown Rx 5/325 mg] Ketorolac [Toradol] 10 mg PO Q6H PRN #20 tablet 07/21/16 Unknown Rx Sulfamethoxazole/Trimethoprim 1 each PO BID #20 tablet 07/21/16 Unknown Rx [Bactrim DS TAB] Losartan [Cozaar] 25 mg PO QDAY #30 tablet 08/31/18 Unknown Rx Ibuprofen [Motrin 800 MG tab] 800 mg PO Q8HR PRN #30 tablet 09/13/18 Unknown Rx Menthol/Camphor [[place] 1 applic TP BID PRN #1 cream..g. 09/13/18 Unknown Rx Neck-Shoulder Cream] HYDROcodone/APAP 5-325 [[place] 1 each PO Q6HR PRN #14 tablet 04/18/21 Unknown Rx 5/325] Ibuprofen [Motrin] 800 mg PO Q8HR PRN #20 tablet 04/18/21 Unknown Rx Sulfamethoxazole/Trimethoprim 1 each PO BID #20 tab 04/18/21 Unknown Rx [Bactrim DS TAB] ED Physical Exam - General Limitations: No Limitations - Other Other exam information: General: No acute distress Head: Atraumatic Eyes: normal appearance ENT: Moist mucous membranes Neck: Normal appearance, no midline tenderness Chest: Clear to auscultation bilaterally CV: Regular rate and rhythm Abdomen: Soft, normal bowel sounds, nondistended, no rebound or guarding. Left lower quadrant draining abscess with underlying induration. Positive warmth, erythema, and tenderness to left lower quadrant abdominal wall suggestive of cellulitis Back: Normal inspection Extremity: Normal inspection, full range of motion Neuro: Alert O x 3, no facial asymmetry, speech clear, no gross motor sensory deficit Psych: Appropriate behavior Skin: As per abdominal exam ED Course Vital Signs 04/17/21 22:58 Temperature 98.0 F Pulse Rate 94 H Respiratory 16 Rate Blood Pressure 198/131 O2 Sat by Pulse 99 Oximetry ED Medical Decision Making - Lab Data Result diagrams: 04/18/21 01:45 04/18/21 01:45 Lab Results 04/18/21 04/18/21 04/18/21 Range/Units 01:45 01:45 01:45 WBC 9.7 (4.5-11.0) K/mm3 RBC 4.82 (3.65-5.03) M/mm3 Hgb 13.2 (10.1-14.3) gm/dl Hct 40.1 (30.3-42.9) % MCV 83 (79-97) fl MCH 27 L (28-32) pg MCHC 33 (30-34) % RDW 15.0 (13.2-15.2) % Plt Count 282 (140-440) K/mm3 Lymph % (Auto) 21.5 (13.4-35.0) % [place] % (Auto) 7.5 H (0.0-7.3) % Eos % (Auto) 1.0 (0.0-4.3) % Baso % (Auto) 0.6 (0.0-1.8) % Lymph # (Auto) 2.1 (1.2-5.4) K/mm3 [place] # (Auto) 0.7 (0.0-0.8) K/mm3 Eos # (Auto) 0.1 (0.0-0.4) K/mm3 Baso # (Auto) 0.1 (0.0-0.1) K/mm3 Seg Neutrophils % 69.4 (40.0-70.0) % Seg Neutrophils # 6.7 (1.8-7.7) K/mm3 Sodium 137 (137-145) mmol/L Potassium 3.8 (3.6-5.0) mmol/L Chloride 103.9 (98-107) mmol/L Carbon Dioxide 23 (22-30) mmol/L Anion Gap 14 mmol/L BUN 14 (7-17) mg/dL Creatinine 0.7 (0.6-1.2) mg/dL Estimated GFR > 60 ml/min BUN/Creatinine Ratio 20 % Glucose 115 H (65-100) mg/dL Calcium 8.5 (8.4-10.2) mg/dL Total Bilirubin 0.30 (0.1-1.2) mg/dL AST 12 (5-40) units/L ALT 14 (7-56) units/L Alkaline Phosphatase 107 (35-129) units/L Total Protein 7.3 (6.3-8.2) g/dL Albumin 4.0 (3.9-5) g/dL Albumin/Globulin Ratio 1.2 % Lipase 16 (13-60) units/L Urine Color (Yellow) Urine Turbidity (Clear) Urine pH (5.0-7.0) Ur Specific Mcdavid (1.003-1.030) Urine Protein (Negative) mg/dL Urine Glucose (UA) (Negative) mg/dL Urine Ketones (Negative) mg/dL Urine Blood (Negative) Urine Nitrite (Negative) Ur Reducing Substances Urine Bilirubin (Negative) Urine Ictotest Urine Urobilinogen (<2.0) mg/dL Ur Leukocyte Esterase (Negative) Urine WBC (Auto) (0.0-6.0) /HPF Urine RBC (Auto) (0.0-6.0) /HPF U Epithel Cells (Auto) (0-13.0) /HPF Urine Mucus /HPF Urine HCG, Qual (Negative) 04/18/21 Range/Units Unknown WBC (4.5-11.0) K/mm3 RBC (3.65-5.03) M/mm3 Hgb (10.1-14.3) gm/dl Hct (30.3-42.9) % MCV (79-97) fl MCH (28-32) pg MCHC (30-34) % RDW (13.2-15.2) % Plt Count (140-440) K/mm3 Lymph % (Auto) (13.4-35.0) % [place] % (Auto) (0.0-7.3) % Eos % (Auto) (0.0-4.3) % Baso % (Auto) (0.0-1.8) % Lymph # (Auto) (1.2-5.4) K/mm3 [place] # (Auto) (0.0-0.8) K/mm3 Eos # (Auto) (0.0-0.4) K/mm3 Baso # (Auto) (0.0-0.1) K/mm3 Seg Neutrophils % (40.0-70.0) % Seg Neutrophils # (1.8-7.7) K/mm3 Sodium (137-145) mmol/L Potassium (3.6-5.0) mmol/L Chloride (98-107) mmol/L Carbon Dioxide (22-30) mmol/L Anion Gap mmol/L BUN (7-17) mg/dL Creatinine (0.6-1.2) mg/dL Estimated GFR ml/min BUN/Creatinine Ratio % Glucose (65-100) mg/dL Calcium (8.4-10.2) mg/dL Total Bilirubin (0.1-1.2) mg/dL AST (5-40) units/L ALT (7-56) units/L Alkaline Phosphatase (35-129) units/L Total Protein (6.3-8.2) g/dL Albumin (3.9-5) g/dL Albumin/Globulin Ratio % Lipase (13-60) units/L Urine Color Yellow (Yellow) Urine Turbidity Slightly-cloudy (Clear) Urine pH 5.0 (5.0-7.0) Ur Specific Mcdavid 1.020 (1.003-1.030) Urine Protein <15 mg/dl (Negative) mg/dL Urine Glucose (UA) Neg (Negative) mg/dL Urine Ketones Neg (Negative) mg/dL Urine Blood Neg (Negative) Urine Nitrite Neg (Negative) Ur Reducing Substances Not Reportable Urine Bilirubin Neg (Negative) Urine Ictotest Not Reportable Urine Urobilinogen < 2.0 (<2.0) mg/dL Ur Leukocyte Esterase Neg (Negative) Urine WBC (Auto) 1.0 (0.0-6.0) /HPF Urine RBC (Auto) 1.0 (0.0-6.0) /HPF U Epithel Cells (Auto) 14.0 H (0-13.0) /HPF Urine Mucus Few /HPF Urine HCG, Qual Negative (Negative) - Medical Decision Making 35-year-old female presents to the hospital with complaints of abdominal pain x2 days. Exam reveals that patient has an abdominal wall cellulitis with draining abscess. Wound dressing applied.treated in the ED with clindamycin, Bactrim, and [place]. As per medical record patient received tetanus in 2013 therefore up-to-date. Patient significant elevated blood pressure but is asymptomatic. 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 She was encouraged to take her BP medication when she gets home Critical Care Time: No Critical care attestation.: If time is entered above; I have spent that time in minutes in the direct care of this critically ill patient, excluding procedure time. ED Disposition Clinical Impression: Abdominal wall abscess, Abdominal wall cellulitis, Uncontrolled hypertension, Noncompliance with medication regimen Disposition: 01 HOME / SELF CARE / HOMELESS Is pt being admited?: No Condition: Stable Instructions: Abdominal Pain (ED), Hypertension (ED), Skin Abscess, Cellulitis, Adult, Hypertension, Adult Additional Instructions: Take the medication as prescribed. Follow-up with your doctor or doctor/clinic provided. Return if symptoms worsen as indicated by your discharge instructions. Take your blood pressure medication as soon as you get home. Prescriptions: Sulfamethoxazole/Trimethoprim [Bactrim DS TAB] 1 each PO BID #20 tab Ibuprofen [Motrin] 800 mg PO Q8HR PRN #20 tablet PRN Reason: Pain , Severe (7-10) HYDROcodone/APAP 5-325 [[place] 5/325] 1 each PO Q6HR PRN #14 tablet PRN Reason: Pain Referrals: ANDREI SUTTON MD [Primary Care Provider] - 3-5 Days Time of Disposition: 08:03
[2021-04-18 08:37] VITALS: BP 200/115
== END 2021-04-18 08:40 | disposition home or self-care (01) ==
LOC: ED 20:26
DX: L02.211 Cutaneous abscess of abdominal wall (principal); L03.311 Cellulitis of abdominal wall; I10 Essential (primary) hypertension; F17.200 Nicotine dependence, unspecified, uncomplicated; Z98.890 Other specified postprocedural states; Z79.899 Other long term (current) drug therapy; Z91.14 Patient's other noncompliance with medication regimen
CPT/HCPCS: 36415; 74018; 80053; 81001; 81025; 83690; 85025; 99283; 99284